=== PATIENT | male | born 1965 | race Caucasian/White ===

== ENCOUNTER → 2025-11-24 | Outpatient (CLI) | payer OTHER, SELFPAY ==
--- OUTSIDE RECORDS SUMMARY | 2025-11-24 07:17 | XMS RPT_ITS | CCD ---
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 Operator Name Role Phone Jazzy Minnie DENNY Unavailable Carmelo Foster MD Primary Care Provider Carmelo Foster MD Primary Care Provider CARMELO FOSTER Primary Care Unavailable Aliya Doherty Unavailable Nava Romero Unavailable Unavailable Primary Care Provider UnavailNoemi Upton MD Unavailable Carmelo Foster MD Unavailable Jacquleyn Parikh PA-C Unavailable [phone] Allergies Allergy Classification Reported Allergen(s) Allergy Type Date of Onset Reaction(s) Facility (3 sources) Ciprofloxacin Drug Allergy 0 nausea [facility] Work Phone: (5 sources) Ciprofloxacin; Translations: [CIPROFLOXACIN] Drug Allergy 7 GI Upset, Nausea/vomiting [facility] Medications Current Medications Medication Drug Class(es) Dates Sig (Normalized) Sig (Original) acetaminophen 325 mg / oxyCODONE hydrochloride 5 mg oral tablet (2 sources) Opioid Agonist Start: 08-05-2017 take 1-2 tablets by mouth every four hours as needed oxyCODONE-acetam inophen (PERCOCET) 5-325 mg tablet Take 1-2 tablets by mouth every 4 hours as needed. 30 tablet 08/05/2017 Active Comment on above: Take 1-2 tablets by mouth every 4 hours as needed. cephalexin 500 mg oral capsule (4 sources) Cephalosporin Antibacterial Start: 11-14-2024 End: 11-19-2024 take 1 capsule by mouth every eight hours cephalexin (Keflex) 500 mg capsule Indications: Laceration of right little finger without foreign body without damage to nail, initial encounter Take 1 capsule (500 mg) by mouth every 8 hours for 5 days. 15 capsule 11/14/2024 11/19/2024 Active Start: 07-15-2024 Cephalexin 500 mg oral capsule hydroCHLOROthiazide 12.5 mg / lisinopril 20 mg oral tablet (7 sources) Thiazide Diuretic, Angiotensin Converting Enzyme Inhibitor Start: 08-15-2020 take 2 tablets by mouth once daily lisinopril-hydrochlorothiazide 20-12.5 mg tablet 2 tablet by mouth once a day active [facility]ada Guevara [facility]. Comment on above: Take 2 tablets by mo [facility] once daily. metoprolol tartrate 100 mg oral tablet (7 sources) beta-Adrenerg ic Tonia Start: 08-15-2020 take 1 tablet by mouth twice daily metoprolol tartrate 100 mg tablet 1 tablet by mouth twice a day active Ghada Guevara [facility] [employer] [facility]. Comment on above: Take 100 mg by mouth twice daily. pantoprazole 40 mg delayed release oral tablet (5 sources) Proton Pump Inhibitor Start: 08-17-2024 take 1 tablet by mouth in the morning pantoprazole (ProtoNix) 40 mg EC tablet Take 1 tablet by mouth early in the morning.. 08/17/2024 Active Start: 08-15-2020 take 1 tablet by [facility] once daily pantoprazole 20 mg tablet,delayed release 1 tablet by mouth once a day active [facility] Start: 08-15-2020 PANTOPRAZOLE S ODIUM 40 MG TBEC 1 tablet daily PANTOPRAZOLE SODIUM [id number] Lakeisha Navarro [facility] Completed/Discontinued Medications Medication Drug Class(es) Dates Sig (Normalized) Sig (Original) NEGATED: Highlighted row has not occurred! (3 sources) Start: 08-21-2024 End: 08-21-2024 Start: 07-15-2024 End: 07-15-2024 Problems Active Problems Problem Classification Problem Date Documented Date Episodic/Chronic Esophageal disorders (2 sources) Gastroesophageal reflux disease; Translations: [Gastro-esophageal reflux disease without esophagitis] Onset: 03-04-2023 03-04-2023 Chronic Essential hypertension (2 sources) Essential hypertension; Translations: [Essential (primary) hypertension] Onset: 07-31-2017 07-31-2017 Chronic Osteoarthritis (5 sources) Unilateral primary osteoarthritis, right hip; Translations: [Unilateral primary osteoarthritis, left hip] Onset: 08-19-2020 08-19-2020 Chronic Other aftercare (1 source) Removal of sutures done; Translations: [Encounter for removal of sutures] 11-27-2024 Episodic Other connective tissue disease (3 sources) History of total hip arthroplasty; Translations: [Presence of right artificial hip joint] Onset: 10-28-2020 10-28-2020 Chronic Other connective tissue disease (2 sources) History of repair of hip joint; Translations: [Presence of left artificial hip joint] Onset: 11-04-2023 11-04-2023 Chronic Other nervous system disorders (2 sources) Lesion of ulnar nerve, right upper limb; Translations: [Lesion of ulnar nerve] Onset: 04-23-2025 05-03-2025 Chronic Other nervous system disorders (2 sources) Carpal tunnel syndrome of right wrist; Translations: [Carpal tunnel syndrome, right upper limb] Onset: 04-23-2025 05-03-2025 Chronic Other non-traumatic joint disorders (2 sources) Arthritis of right elbow; Translations: [Other specified arthritis, right elbow] Onset: 03-23-2025 03-24-2025 Chronic Other non-traumatic joint disorders (1 source) Pain in right knee; Translations: [Pain in right knee] Onset: 10-08-2024 Episodic Past or Other Problems Problem Classification Problem Date Documented Date Episodic/Chronic Abdominal hernia (2 sources) Umbilical hernia; Translations: [Umbilical hernia without obstruction or gangrene] Onset: 07-24-2017 07-24-2017 Episodic Joint disorders and dislocations; trauma-related (2 sources) Acute meniscal tear, medial; Translations: [Other tear of medial meniscus, current injury, right knee, initial encounter] Onset: 10-16-2024 10-16-2024 Episodic Open wounds of extremities (9 sources) Laceration without foreign body of right index finger without damage to nail, initial encounter; Translations: [Laceration of right little finger] Onset: 07-15-2024 Episodic Other connective tissue disease (2 sources) Lateral epicondylitis of right humerus; Translations: [Lateral epicondylitis, right elbow] Onset: 03-23-2025 03-24-2025 Episodic Other nervous system disorders (2 sources) Numbness of hand; Translations: [Anesthesia of skin] Onset: 03-23-2025 03-24-2025 Episodic Unclassified (1 source) Problem Results Test Name Value Interpretation Reference Range Facil ity Relevant diagnostic tests/la boratory data Narrativeon 07-27-2025 EMG HX of the Right Upper Extremity on 04/23/2025 at [employer] Work Phone: Fall risk assessment yes DAY[facility] [employer] Work Phone: MEDS REVIEW [employer] Work Phone: MEDS REVIEWD Medications reviewed with changes [employer] Work Phone: XRAY HX of the Right Hand and Elbow on 03/23/2025 at [employer] Work Phone: Relevant diagnostic tests/la boratory data Narrativeon 06-21-2025 EMG HX of the RUE on 04/23/2025 at [employer] Work Phone: Fall risk assessment yes DAYAN[facility] [employer] Work Phone: MEDS REVIEW Documentation of current medications (procedure) [employer] Work Phone: MEDS REVIEWD Medications reviewed without changes [employer] Work Phone: XRAY HX of the hand on 03/23/2025 at [employer] Work Phone: Suture Removalon 11-27-2024 Mayra Almaguer PA-C 11/27/2024 6:46 PM Suture Removal Date/Time: 11/27/2024 6:37 PM Performed by: Mayra Almaguer PA-C Authorized by: Mayra Almaguer PA-C Consent: Consent obtained: Verbal Consent given by: Patient Risks, benefits, and alternatives were discussed: yes Risks discussed: Bleeding and pain [place] protocol: Procedure explained and questions answered to patient or proxy's satisfaction: yes Patient identity confirmed: Verbally with patient Location: Location: Upper extremity Upper extremity location: Hand Hand location: R small finger Procedure details: Wound appearance: No signs of infection Number of sutures removed: 8 Post-procedure details: Post-removal: Band-Aid applied Procedure completion: Tolerated well, no immediate complications [facility] Work Phone: [facility] Work Phone: Laceration Repairon 11-14-20 Bud Scruggs MD 11/17/2024 10:56 PM Laceration Repair Date/Time: 11/14/2024 1:05 PM Performed by: Bud Scruggs MD Authorized by: Bud Scruggs MD Consent: Consent obtained: Verbal Risks discussed: Infection Laceration details: Location: Finger Finger location: R small finger Length (cm): 1.5 Depth (mm): 2 Exploration: Wound extent: muscle damage Wound extent: no foreign bodies/material noted and no tendon damage noted Treatment: Area cleansed with: Chlorhexidine Irrigation solution: Sterile saline Irrigation method: Syringe Skin repair: Repair method: Sutures Suture size: 4-0 Suture material: Prolene and nylon Suture technique: Simple interrupted Number of sutures: 8 Approximation: Approximation: Close Repair type: Repair type: Intermediate Post-procedure details: Dressing: Antibiotic ointment and non-adherent dressing Procedure completion: Tolerated well, no immediate complications [facility] Work Phone: [facility] Work Phone: CBC (INCLUDES DIFF/PLT)on Basophils (Bld) [#/Vol] 0.049 10*3/uL Normal 0-200 [facility] Comment on above: Performed By: #### 6 399, 99935, 7600 #### [facility] [address], [address] [place] [id number] Getterer: Adriano Payne MD Basophils/100 WBC (Bld) 1.0 % Normal [facility] Comment on above: Performed By: #### 6 399, 22896, 7600 #### [facility] [address], [address] [place] [phone] Getterer: Adriano Payne MD Eosinophils (Bld) [#/Vol] 0.108 10*3/uL Normal 15-500 [facility] Comment on above: Performed By: #### 6 399, 77651, 0 #### [facility] of [address], [address] [place] [address] Getterer: Adriano Payne MD Eosinophils/100 WBC (Bld) 2.2 % Normal [facility] Comment on above: Performed By: #### 6 399, , 0 #### [facility] of [place] [address] Getterer: Adriano Payne MD Erythrocyte distribution width (RBC) [Ratio] 13.1 % Normal 11.0-15.0 [facility] Comment on above: Performed By: #### 6 399, , 0 #### [facility] of [place] [address] Getterer: Adriano Payne MD Hematocrit (Bld) [Volume fraction] 43.2 % Normal 38.5-50.0 [facility] Comment on above: Performed By: #### 6 399, , 0 #### [facility] of [place] [address] Getterer: Adriano Payne MD Hemoglobin (Bld) [Mass/Vol] 14.3 g/dL Normal 13.2-17.1 [facility] Comment on above: Performed By: #### 6 399, 41478, 0 #### [facility] of [place] [address] Getterer: Adriano Payne MD Lymphocytes (Bld) [#/Vol] 1.352 10*3/uL Normal 850-3900 [facility] Comment on above: Performed By: #### 6 399, 50657, 7600 #### [facility] of [place] [address] Getterer: Adriano Payne MD Lymphocytes/100 WBC (Bld) 27.6 % Normal [facility] Comment on above: Performed By: #### 6 399, 39449, 7600 #### [facility] of [place] [address] Getterer: Adriano Payne MD MCH (RBC) [Entitic mass] 29.7 pg Normal 27.0-33.0 [facility] Comment on above: Performed By: #### 6 399, 28821, 7600 #### [facility] of [place] [address] Getterer: Adriano Payne MD MCHC (RBC) [Mass/Vol] 33.1 g/dL Normal 32.0-36.0 [facility] Comment on above: Result Comment: For adults, a slight decrease in the calculated MCHC value (in the range of 30 to 32 g/dL) is most likely not clinically significant; however, it should be interpreted with caution in correlation with other red cell parameters and the patient's clinical condition. Performed By: #### 6 399, 18432, 0 #### [facility] of [place] [address] Getterer: Adriano Payne MD MCV (RBC) [Entitic vol] 89.8 fL Normal 80.0-100.0 [facility] Comment on above: Performed By: #### 6 399, 43598, 0 #### [facility] of [place] [address] Getterer: Adriano Payne MD Monocytes (Bld) [#/Vol] 0.588 10*3/uL Normal 200-950 [facility] Comment on above: Performed By: #### 6 399, 50093, 7600 #### [facility] [place] [address] Getterer: Adriano Payne MD Monocytes/100 WBC (Bld) 12.0 % Normal [facility] Comment on above: Performed By: #### 6 399, 72265, 7600 #### [facility] [place] [address] Getterer: Adriano Payne MD Neutrophils (Bld) [#/Vol] 2.803 10*3/uL Normal 4599-8780 [facility] Comment on above: Performed By: #### 6 399, 41403, 7600 #### [facility] of [address], [address] [place] [address] Getterer: Adriano Payne MD Neutrophils/100 WBC (Bld) 57.2 % Normal [facility] Comment on above: Performed By: #### 6 399, 28785, 0 #### [facility] of [address], [address] [place] [address] Getterer: Adriano Payne MD Platelet mean volume (Bld) [Entitic vol] 9.2 fL Normal 7.5-12.5 [facility] Comment on above: Performed By: #### 6 399, 90303, 0 #### [facility] of [address], [address] [place] [address] Getterer: Adriano Payne MD Platelets (Bld) [#/Vol] 277 10*3/uL Normal 140-400 [facility] Comment on above: Performed By: #### 6 399, 40079, 0 #### [facility] of [address], [address] [place] [address] Getterer: Adriano Payne MD RBC (Bld) [#/Vol] 4.81 10*6/uL Normal 4.20-5.80 [facility] Comment on above: Performed By: #### 6 399, 11527, 0 #### [facility] of [address], [address] [place] [address] Getterer: Adriano Payne MD WBC (Bld) [#/Vol] 4.9 10*3/uL Normal 3.8-10.8 [facility] Comment on above: Performed By: #### 6 399, 34797, 7600 #### [facility] of [address], [address] [place] [address] Getterer: Adriano Payne MD COMPREHENSIVE METABOLIC PANE Rios 11-15-2024 Albumin [Mass/Vol] 4.1 g/dL Normal 3.6-5.1 [facility] Comment on above: Performed By: #### 6 399, 52153, 7600 #### [facility] of [address], [address] [place] [address] Getterer: Adriano Payne MD Albumin/Globulin [Mass ratio] 1.6 {ratio} Normal 1.0-2.5 [facility] Comment on above: Performed By: #### 6 399, 20006, 7600 #### [facility] of [address], [address] [place] [address] Getterer: Adriano Payne MD ALP [Catalytic activity/Vol] 62 U/L Normal 35-144 [facility] Comment on above: Performed By: #### 6 399, 42329, 0 #### [facility] of [place] [address] Getterer: Adriano Payne MD ALT [Catalytic activity/Vol] 20 U/L Normal 9-46 [facility] Comment on above: Performed By: #### 6 399, 31218, 0 #### [facility] [place] [address] Getterer: Adriano Payne MD AST [Catalytic activity/Vol] 19 U/L Normal 10-35 [facility] Comment on above: Performed By: #### 6 399, 12372, 0 #### [facility] of [place] [address] Getterer: Adriano Payne MD Bilirubin [Mass/Vol] 0.8 mg/dL Normal 0.2-1.2 [facility] Comment on above: Performed By: #### 6 399, 11544, 7600 #### [facility] of [place] [address] Getterer: Adriano Payne MD BUN/CREATININE RATIO SEE NOTE: Normal 6-22 [facility] Comment on above: Result Comment: Not Reported: BUN and Creatinine are within reference range. Performed By: #### 6 399, 13683, 0 #### [facility] of [place] [address] Getterer: Adriano Payne MD Calcium [Mass/Vol] 8.9 mg/dL Normal 8.6-10.3 [facility] Comment on above: Performed By: #### 6 399, 98647, 7600 #### [facility] [place] [address] Getterer: Adriano Payne MD Chloride [Moles/Vol] 102 mmol/L Normal 98-110 [facility] Comment on above: Performed By: #### 6 399, 48165, 7600 #### [facility] [place] [address] Getterer: Adriano Payne MD CO2 [Moles/Vol] 28 mmol/L Normal 20-32 [facility] Comment on above: Performed By: #### 6 399, 33867, 0 #### [facility] [place] [address] Getterer: Adriano Payne MD Creatinine [Mass/Vol] 0.84 mg/dL Normal 0.70-1.30 [facility] Comment on above: Performed By: #### 6 399, 02467, 0 #### [facility] [place] [address] Getterer: Adriano Payne MD GFR/1.73 sq M.predicted among non-blacks MDRD (S/P/Bld) [Vol rate/Area] 102 mL/min/{1.73_m2} Normal > OR = 60 [facility] Comment on above: Performed By: #### 6 399, 98631, 7600 #### [facility] [place] [address] Getterer: Adriano Payne MD Globulin (S) [Mass/Vol] 2.6 g/dL Normal 1.9-3.7 [facility] Comment on above: Performed By: #### 6 399, 68680, 7600 #### [facility] [address], [address] [place] [address] Getterer: Adriano Payne MD Glucose [Mass/Vol] 95 mg/dL Normal 65-99 [facility] Comment on above: Result Comment: Fasting reference interval Performed By: #### 6 399, 44330, 7600 #### [facility] [address], [address] [place] [address] Getterer: Adriano Payne MD Potassium [Moles/Vol] 4.0 mmol/L Normal 3.5-5.3 [facility] Comment on above: Performed By: #### 6 399, 38662, 7600 #### [facility] [place] [address] Getterer: Adriano Payne MD Protein [Mass/Vol] 6.7 g/dL Normal 6.1-8.1 [facility] Comment on above: Performed By: #### 6 399, 59032, 7600 #### [facility] [address], [address] [place] [address] Getterer: Adriano Payne MD Sodium [Moles/Vol] 140 mmol/L Normal 135-146 [facility] Comment on above: Performed By: #### 6 399, 40806, 7600 #### [facility] [place] [address] Getterer: Adriano Payne MD Urea nitrogen [Mass/Vol] 25 mg/dL Normal 7-25 [facility] Comment on above: Performed By: #### 6 399, 02346, 7600 #### [facility] of [place] [address] Getterer: Adriano Payne MD LIPID PANEL, [facility] 09-25 Cholesterol [Mass/Vol] 183 mg/dL Normal <200 [facility] Comment on above: Order Comment: FASTI NG:YES FASTING: YES Performed By: #### 6 399, 40056, 7600 #### [facility] of [place] [address], [address] [place] [address] Getterer: Adriano Payne MD Cholesterol in HDL [Mass/Vol] 41 mg/dL Normal > OR = 40 [facility] Comment on above: Order Comment: FASTI NG:YES FASTING: YES Performed By: #### 6 399, 55755, 7600 #### [facility] [address], [address] [place] [address] Getterer: Adriano Payne MD Cholesterol in LDL [Mass/Vol] 107 mg/dL High [facility] Comment on above: Order Comment: FASTI NG:YES FASTING: YES Result Comment: Refe rence range: <100 Desirable range <100 mg/dL for primary prevention; <70 mg/dL for patients with CHD or diabetic patients with > or = 2 CHD risk factors. LDL-C is now calculated using the Miguel Ángel calculation, which is a validated novel method providing better accuracy than the Friedewald equation in the estimation of LDL-C. Master SS et al. JANUARY. 2013;310(19): 4557-1400 (http://education.Match.AngelPrime/faq/YJO845) Performed By: #### 6 399, 61133, 7810 #### [facility] [address], [address] [place] [address] Getterer: Adriano Payne MD Cholesterol.total/Ch olesterol in HDL [Mass ratio] 4.5 {ratio} Normal <5.0 [facility] Comment on above: Order Comment: FASTI NG:YES FASTING: YES Performed By: #### 6 399, 91349, 7600 #### [facility] [address], [address] [place] [address] Getterer: Adriano Payne MD NON HDL CHOLESTEROL 142 mg/dL (calc) High <130 [facility] Comment on above: Order Comment: FASTI NG:YES FASTING: YES Result Comment: For patients with diabetes plus 1 major ASCVD risk factor, treating to a non-HDL-C goal of <100 mg/dL (LDL-C of <70 mg/dL) is considered a therapeutic option. Performed By: #### 6 399, 71008, 7600 #### [facility] [address], [address] [place] [address] Getterer: Adriano Payne MD Triglyceride [Mass/Vol] 231 mg/dL High <150 [facility] Comment on above: Order Comment: FASTI NG:YES FASTING: YES Result Comment: If a non-fasting specimen was collected, consider repeat triglyceride testing on a fasting specimen if clinically indicated. Yuliana et al. J. of Clin. Lipidol. 2015;9:129-169. Performed By: #### 6 399, 87133, 7600 #### [facility] [address], [address] [place] [address] Getterer: Adriano Payne MD PSA, TOTALon 10-09-2024 PSA, TOTAL 1.03 ng/mL Normal < OR = 4.00 [facility] Comment on above: Result Comment: The total PSA value from this assay system is standardized against the WHO standard. The test result will be approximately 20% lower when compared to the equimolar-standardized total PSA (Amos Mili). Comparison of serial PSA results should be interpreted with this fact in mind. This test was performed using the Siemens chemiluminescent method. Values obtained from different assay methods cannot be used interchangeably. PSA levels, regardless of value, should not be interpreted as absolute evidence of the presence or absence of disease. Performed By: #### 6 399, 10244, 7600 #### [facility] [address], [address] [place] [address] Getterer: Adriano Payne MD XR HIP GENERAL 3V PELV/AP/LA T LEFTon 01-31-2023 [facility] ic Clinical Summary: HMSPatient IDon 10-28-[address] [facility] Work Phone: Clinical Summary: HMSPatient IDon 10-25-2020 Physical Therapy Outpatient [facility] Work Phone: Vital Signs Date Time Vital Sign Value Performing Clinician Facility 07-27-2025 09:44-0400 Body height 183 cm Jacquelyn Parikh PA-C Work Phone: [facility] 07-27-2025 09:44-0400 Body height 182.88 cm Jacquelyn Lozoyar PA-C Work Phone: [facility] 07-27-2025 09:44-0400 Body mass index (BMI) [Ratio] 32.26 kg/m2 Jacquelyn Lozoyar PA-C Work Phone: [facility] 07-27-2025 09:44-0400 Body weight 108 kg Jacquelyn Lozoyar PA-C Work Phone: [facility] 07-27-2025 09:44-0400 Body weight 107.5 kg Jacquelyn Lozoyar PA-C Work Phone: [facility] 07-27-2025 09:44-0400 BP SITE #1 Jacquelyn Lozoyar PA-C Work Phone: [facility] 07-27-2025 09:44-0400 BP SITE #2 Jacquelyn Lozoyar PA-C Work Phone: [facility] 07-27-2025 09:44-0400 Diastolic blood pressure 81 mm[Hg] Jacquelyn Parikh PA-C Work Phone: [facility] 07-27-2025 09:44-0400 Diastolic blood pressure 83 mm[Hg] Jacquelyn Lozoyar PA-C Work Phone: [facility] 07-27-2025 09:44-0400 Heart rate 85 /min Jacquelyn Lozoyar PA-C Work Phone: [facility] 07-27-2025 09:44-0400 HGHTCHNVIS Jacquelyn Lozoyar PA-C Work Phone: [facility] 07-27-2025 09:44-0400 Systolic blood pressure 140 mm[Hg] Jacquelyn Lozoyar PA-C Work Phone: [facility] 07-27-2025 09:44-0400 Systolic blood pressure 142 mm[Hg] Jacquelyn Lozoyar PA-C Work Phone: [facility] 07-27-2025 09:44-0400 VITALSDONE Jacquelyn Lozoyar PA-C Work Phone: [facility] 06-21-2025 11:12-0400 Body height 183 cm Jacquelyn Lozoyar PA-C Work Phone: [facility] 06-21-2025 11:12-0400 Body height 182.88 cm Jacquelyn Lozoyar PA-C Work Phone: [facility] 06-21-2025 11:12-0400 Body mass index (BMI) [Ratio] 32.53 kg/m2 Jacquelyn Lozoyar PA-C Work Phone: [facility] 06-21-2025 11:12-0400 Body weight 109 kg Jacquelyn Lozoyar PA-C Work Phone: [facility] 06-21-2025 11:12-0400 Body weight 108.41 kg Jacquelyn Lozoyar PA-C Work Phone: [facility] 06-21-2025 11:12-0400 BP SITE #1 Jacquelyn Batresucar PA-C Work Phone: [facility] 06-21-2025 11:12-0400 BP SITE #2 Jacquelyn Batresucar PA-C Work Phone: [facility] 06-21-2025 11:12-0400 Diastolic blood pressure 87 mm[Hg] Jacquelyn Lozoyar PA-C Work Phone: [facility] 06-21-2025 11:12-0400 Diastolic blood pressure 94 mm[Hg] Jacquelyn Klucar PA-C Work Phone: [facility] 06-21-2025 11:12-0400 Heart rate 88 /min Jacquelyn Klucar PA-C Work Phone: [facility] 06-21-2025 11:12-0400 HGHTCHNVIS Jacquelyn Klucar PA-C Work Phone: [facility] 06-21-2025 11:12-0400 Systolic blood pressure 163 mm[Hg] Jacquelyn Klucar PA-C Work Phone: [facility] 06-21-2025 11:12-0400 Systolic blood pressure 168 mm[Hg] Jacquelyn Klucar PA-C Work Phone: [facility] 06-21-2025 11:12-0400 VITALSDONE Jacquelyn Klucar PA-C Work Phone: [facility] 11-27-2024 18:17-0500 Body temperature 96.69 [degF] Mayra Tripp PA-C Work Phone: [facility] 11-27-2024 18:17-0500 Body weight 108.86 kg Mayra Tripp PA-C Work Phone: [facility] 11-27-2024 18:17-0500 Diastolic blood pressure 82 mm[Hg] Mayra Tripp PA-C Work Phone: [facility] 11-27-2024 18:17-0500 Heart rate 56 /min Mayra Tripp PA-C Work Phone: [facility] 11-27-2024 18:17-0500 Respiratory rate 16 /min Mayra Tripp PA-C Work Phone: [facility] 11-27-2024 18:17-0500 SaO2% (BldA) [Mass fraction] 99 % Mayra Almaguer PA-C Work Phone: [facility] 11-27-2024 18:17-0500 Systolic blood pressure 146 mm[Hg] Mayra Almaguer PA-C Work Phone: [facility] 11-14-2024 11:51-0500 Body temperature 97.59 [degF] Bud Scruggs MD Work Phone: [facility] 11-14-2024 11:51-0500 Diastolic blood pressure 89 mm[Hg] Bud Scruggs MD Work Phone: [facility] 11-14-2024 11:51-0500 Heart rate 47 /min Bud Scruggs MD Work Phone: [facility] 11-14-2024 11:51-0500 Respiratory rate 16 /min Bud Scruggs MD Work Phone: [facility] 11-14-2024 11:51-0500 SaO2% (BldA) [Mass fraction] 99 % Bud Scruggs MD Work Phone: [facility] 11-14-2024 11:51-0500 Systolic blood pressure 174 mm[Hg] Bud Scruggs MD Work Phone: [facility] 07-15-2024 08:18-0400 Body temperature 97.16 [degF] Aliya Pollack [facility] 07-15-2024 08:18-0400 Body weight 108.9 kg Aliya Pollack [facility] 07-15-2024 08:18-0400 Diastolic blood pressure 99 mm[Hg] Aliya Pollack [facility] 07-15-2024 08:18-0400 Heart rate 55 /min Aliya Pollack [facility] 07-15-2024 08:18-0400 Respiratory rate 16 /min Aliya Doherty [facility] 07-15-2024 08:18-0400 SaO2% (BldA) [Mass fraction] 98 % Aliya Doherty [facility] 07-15-2024 08:18-0400 Systolic blood pressure 185 mm[Hg] Aliya Doherty [facility] NEGATED: Highlighted [id number] 15:32-0500 BMI (Body Mass Index) 31.49 kg/m2 Aline Orellana [facility] Work Phone: NEGATED: Highlighted [id number] 15:32-0500 Body weight 102.06 kg Aline Orellana [facility] Work Phone: NEGATED: Highlighted [id number] 15:32-0500 Body weight 102 kg Aline Orellana [facility] Work Phone: NEGATED: Highlighted [id number] 15:32-0500 Heart rate 2+ Aline Orellana [facility] Work Phone: NEGATED: Highlighted [id number] 15:32-0500 Height 180.34 cm Aline Orellana [facility] Work Phone: NEGATED: Highlighted [id number] 15:32-0500 Height 180 cm Aline Orellana [facility] Work Phone: Encounters Encounter Date Encounter Type Care Provider Facility Start: 07-27-2025 In-person encounter Jacquelyn yeboah PA-C Work Phone: [facility] Work Phone: Start: 07-27-2025 Visit out of hours Jacquelyn You car PA-C Work Phone: [place] [employer] Work Phone: Start: 06-21-2025 In-person encounter Jacquelyn yeboah PA-C Work Phone: [facility] Work Phone: Start: 06-21-2025 Visit out of hours Jacquelyn You car PA-C Work Phone: [facility] Work Phone: Start: 11-27-2024 End: 11-27-2024 Postop follow up visit related to original px Mayra Almaguer PA-C Work Phone: [facility] Comment on above: Visit for suture rem oval (Primary Dx) Start: 11-14-2024 End: 11-14-2024 Office outpatient new 45 minutes Bud Scruggs MD Work Phone: [facility] Comment on above: Laceration of right little finger without foreign body without damage to nail, initial encounter (Primary Dx) Start: 10-08-2024 ambulatory CARMELO FOSTER Faci lity:[facility] Start: 10-08-2024 End: 10-08-2024 Subsequent hospital visit by physician Xr [facility] Comment on above: Pain in right knee [ M25.561] Start: 07-15-2024 Aliya cagle [facility] Start: 01-31-2023 End: 01-31-2023 Subsequent hospital visit by physician Xr [facility] Comment on above: Pain in left hip [M2 5.552] Start: 10-28-2020 End: 10-28-2020 Patient encounter procedure Minnie Purcell [employer] Work Phone: [facility] Work Phone: Procedures Date Procedure Procedure Detail Performing Clinician Start: 07-27-2025 Blood pressure outsi de of normal parameters - follow-up documented Jacquelyn Robbins Klucar PA-C Work Phone: Start: 07-27-2025 BMI documented as ab ove normal parameters - follow-up documented Jacquelyn Robbins Klucar PA-C Work Phone: Start: 07-27-2025 Current tobacco non- user cad cap copd pv dm Jacquelyn Robbins Klucar PA-C Work Phone: Start: 07-27-2025 Documentation of cur rent medications Jacquelyn Robbins Klucar PA-C Work Phone: Start: 07-27-2025 Pain assessment documented as positive - follow-up documented Jacquelyn Robbins Klucar PA-C Work Phone: Start: 07-27-2025 Community/work reintegration traing ea 15 min Jacquelyn A Klucar PA-C Work Phone: Start: 06-21-2025 Blood pressure outsi de of normal parameters - follow-up documented Jacquelyn Robbins Klucar PA-C Work Phone: Start: 06-21-2025 BMI documented as ab ove normal parameters - follow-up documented Jacquelyn Robbins Klucar PA-C Work Phone: Start: 06-21-2025 Current tobacco non- user cad cap copd pv dm Jacquelyn Robbins Klucar PA-C Work Phone: Start: 06-21-2025 Documentation of cur rent medications Jacquelyn A Klucar PA-C Work Phone: Start: 06-21-2025 Pain assessment documented as negative - follow-up not required Jacquelyn Robbins Klucar PA-C Work Phone: Start: 06-21-2025 GEL JOVAN Jacquelyn Robbins Kl ucar PA-C Work Phone: Start: 06-21-2025 GELFLEX Jacquelyn Robbins Kl ucar PA-C Work Phone: Start: 06-21-2025 Occupational therapy Moon Parikh PA-C Work Phone: Start: 12-11-2024 History of operative procedure on knee Status post arthroscopic surgery of right knee Jacquelyn SHARMAC Work Phone: Start: 11-27-2024 SUTURE REMOVAL Mayra crowley PA-C Work Phone: Start: 11-14-2024 Repair intermediate n/h/f/xtrnl gent 2.5cm/< Bud Scruggs MD Work Phone: Start: 07-15-2024 Smpl repair scalp/neck/ax/genit/trun k 2.6-7.5cm Aliya Doherty Start: 01-31-2023 Radex hip unilateral with pelvis 2-3 views Gian SHARMAC Work Phone: Start: 10-28-2020 End: 10-28-2020 Blood pressure screening not performed - reason not given Minnie Robbins Wattley [employer] Work Phone: Start: 10-28-2020 End: 10-28-2020 BMI documented as above normal parameters - follow-up documented Minnie Robbins Wattley [employer] Work Phone: Start: 10-28-2020 End: 10-28-2020 Documentation of current medications Minnie Bustostley [employer] Work Phone: Start: 10-28-2020 End: 10-28-2020 Osteoarthritis assess Minnie A Wattley [employer] Work Phone: Start: 10-28-2020 End: 10-28-2020 Pain assessment documented as positive - follow-up documented Minnie Bustostley [employer] Work Phone: Start: 10-28-2020 End: 10-28-2020 Tobacco non-user Minnie Diopy [employer] Work Phone: Start: 11-01-2018 Follow-up visit Start: 06-02-2016 Lipid 1996 panel - S ramo or Plasma Xr Hosp NEGATED: Highlighted rowStart: 10-28-2020 End: 10-28-2020 Documentation of current medications Aline Orellana LPN Plan of Treatment Date Care Activity Detail Author Start: 11-14-2034 DTaP/Tdap/Td Vaccines (3 - Td or Tdap) DTaP/Tdap/Td Vaccines (3 - Td or Tdap) [facility] Start: 06-17-2027 Urine microalbumin profile DTaP,Tdap,Td Vaccine (2 - Td or Tdap) [facility] Start: 07-27-2025 End: 07-27-2025 [employer] Work Phone: Start: 06-21-2025 End: 06-21-2025 [employer] Work Phone: Start: 07-26-2024 COVID-19 Vaccine ( season) COVID-19 Vaccine () [facility] Start: 07-26-2024 Covid-19 Vaccine ( season) Covid-19 Vaccine ( season) [facility] Start: 07-26-2024 Influenza vaccination Influenza Vaccine (#1) [facility] Start: 11-25-2022 DEPRESSION ASSESSMENT DEPRESSION ASSESSMENT [facility] Start: 2022 PROSTATE CANCER SCREENING DISCUSSION PROSTATE CANCER SCREENING DISCUSSION [facility] Start: 2022 Prostate specific antigen measurement Prostate Cancer Screening Discussion [facility] Start: 08-11-2022 Screening for malignant neoplasm of colon [facility] Start: 01-26-2022 COVID-19 VACCINE (4 - Booster for Pfizer series) COVID-19 VACCINE (4 - Booster for Pfizer series) [facility] Start: 06-02-2021 Lipid panel Lipid Screening [facility] Start: 06-02-2021 LIPID SCREEN LIPID SCREEN [facility] Start: 11-10-2020 End: 11-10-2020 Appointment Appointment [facility] Work Phone: Start: 11-08-2020 End: 11-08-2020 Appointment Appointment [facility] Work Phone: Start: 11-03-2020 End: 11-03-2020 Appointment Appointment [facility] Work Phone: Start: 11-01-2020 End: 11-01-2020 Appointment Appointment [facility] Work Phone: Start: 10-28-2020 End: 10-28-2020 Appointment Appointment [facility] Work Phone: Start: 10-28-2020 End: 10-28-2020 Radex hip unilateral with pelvis 2-3 views XR PELVIS W HIP 1 VIEW-RT [facility] Work Phone: Start: 06-02-2019 DIABETES SCREEN DIABETES SCREEN [facility] Start: 06-02-2019 Diabetes Screening Diabetes Screening [facility] Start: 2017 SHINGRIX VACCINE (1 of 2) SHINGRIX VACCINE (1 of 2) [facility] Start: 2012 COLOGUARD (FIT-DNA) COLOGUARD (FIT-DNA) [facility] Start: 2012 Colonoscopy COLONOSCOPY [facility] Start: 2012 COLORECTAL CANCER SCREENING COLORECTAL CANCER SCREENING [facility] Start: [address] COLONOGRAPHY [facility] Start: 2012 FECAL OCCULT BLOOD FECAL OCCULT BLOOD [facility] Start: 2012 Screening for malignant neoplasm of colon [facility] Start: 2012 SIGMOIDOSCOPY SIGMOIDOSCOPY [facility] Start: 1986 Hepatitis B Vaccine (1 of 3 - 19+ 3-dose series) Hepatitis B Vaccine (1 of 3 - 19+ 3-dose series) [facility] Start: 1986 Hepatitis B Vaccines (1 of 3 - 19+ 3-dose series) Hepatitis B Vaccines (1 of 3 - 19+ 3-dose series) [facility] Start: 1986 Pneumococcal vaccination Pneumococcal Vaccine (1 of 2 - PCV) [facility] Start: 1986 Urine microalbumin profile DTAP,TDAP,TD (1 - Tdap) [facility] Start: 1985 ANNUAL PCP TEAM CHRONIC DISEASE VISIT ANNUAL PCP TEAM CHRONIC DISEASE VISIT [facility] Start: 1985 Anxiety Screening Anxiety Screening [facility] Start: 1985 BP CONTROLLED (<130/80) BP CONTROLLED (<130/80) [facility] Start: 1985 Depression Screening Depression Screening [facility] Start: 1985 HEPATITIS C SCREENING HEPATITIS C SCREENING [facility] Start: 1985 Hepatitis C screening Hepatitis C Screening [facility] Start: 1985 HIV SCREENING HIV SCREENING [facility] Start: 1985 HIV screening HIV Screening [facility] Start: 1968 MMR Vaccines (1 of 1 - Standard series) MMR Vaccines (1 of 1 - Standard series) [facility] Start: 1967 HEPATITIS B (1 of 3 - 3-dose series) HEPATITIS B (1 of 3 - 3-dose series) [facility] Start: 1967 HIV screening HIV Screening [facility] Start: 1967 Lipid panel Lipid Panel [facility] Start: 1967 Screening for malignant neoplasm of colon [facility] Start: 1967 Yearly Adult Physical Yearly Adult Physical [facility] Patient Education \cps-[id number]\CPS_ PtEducatio n\CDC_FALL_PREVENTION.pd f [facility] Work Phone: Immunizations Immunization Date Immunization Notes Care Provider Bayron garzon 11-14-2024 tetanus toxoid, redu joaquina diphtheria toxoid, and acellular pertussis vaccine, adsorbed Bud Scruggs MD Work Phone: [facility] Work Phone: 10-08-2024 Influenza, MDCK, trivalent, preservative Bud Scruggs MD Work Phone: [facility] Work Phone: 10-08-2024 influenza virus vaccine, unspecified formulation Bud Scruggs MD Work Phone: [facility] Work Phone: 11-04-2023 influenza, injectabl e, quadrivalent, preservative free Bud Scruggs MD Work Phone: [facility] Work Phone: 11-04-2023 influenza virus vaccine, unspecified formulation Xr [facility] 01-31-2023 zoster vaccine recombinant Bud Scruggs MD Work Phone: [facility] Work Phone: 11-13-2022 zoster vaccine recombinant Bud Scruggs MD Work Phone: [facility] Work Phone: 10-30-2022 Influenza, injectabl e, Madin Dee Canine Kidney, quadrivalent with preservative Bud Scruggs MD Work Phone: [facility] Work Phone: 10-24-2021 Influenza, injectabl e, Madin [place] Canine Kidney, quadrivalent with preservative Bud Scruggs MD Work Phone: [facility] Work Phone: 03-23-2021 COVID-19 original vaccine, age 12+ yr, monovalent (PFIZER-BIONTECH - PURPLE TOP) Xr [facility] 03-02-2021 COVID-19 original vaccine, age 12+ yr, monovalent (PFIZER-BIONTECH - PURPLE TOP) Xr [facility] 08-25-2020 Influenza, injectabl e, Madin [place] Canine Kidney, quadrivalent with preservative Bud Scruggs MD Work Phone: [facility] Work Phone: 06-17-2017 tetanus toxoid, redu joaquina diphtheria toxoid, and acellular pertussis vaccine, adsorbed Bdu Scruggs MD Work Phone: [facility] Work Phone: Payers Date Payer Category Payer Managed Care (Private) [facility] [id number] 2023 Private Health Insurance [facility] [employer] [id number] 2023-Present [phone] [address] [place] [address] HMO 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) [facility] Start: 1965 Sex Assigned At Not on file [facility] Start: 05-23-2018 End: 11-27-2024 History of Social function [facility] Start: 05-23-2018 End: 07-27-2025 Tobacco use panel [facility] National Score (1-100), lower number is lower risk Not on file [facility] Start: 11-14-2024 [facility] Occasional tobacco smoker [facility] Work Phone: History of tobacco use Cigar Smoker [facility] Work Phone: Start: 11-14-2024 End: 11-27-2024 Alcoholic beverage intake Current drinker of alcohol (finding) [facility] Work Phone: Functional Status Date Assessment Result Facility 07-27-2025 Functional Status no [facility] Work Phone: 07-27-2025 dependent [facility] Work Phone: 06-21-2025 Functional Status no [facility] [employer] [facility] Work Phone: 06-21-2025 dependent [facility] Work Phone: History of Present illness Narrative 11-27-2024 Mayra Almaguer PA-C - 11/27/2024 6:15 PM EST Note Date & Type Note Facility 11-27-2024 History of Present illness Narrative Associated Order(s): Suture Removal Subjective Patient ID: Miguel Eason is a 59 y.o. male. They present today with a chief complaint of Suture / Staple Removal. History of Present Illness Pt has no concerns reported on scene. Reports no concerns. Suture placed on 11/14 at same location. Was rechecked 3days ago and was informed to return later due to concerns for healing. Suture / Staple Removal Past Medical History Allergies as of 11/27/2024 - Reviewed 11/27/2024 Allergen Reaction Noted Ciprofloxacin Nausea/vomiting 11/14/2024 (Not in a hospital admission) History reviewed. No pertinent past medical history. History reviewed. No pertinent surgical history. reports that he has been smoking cigars. He has never used smokeless tobacco. He reports current alcohol use. He reports that he does not use drugs. Review of Systems Review of Systems Constitutional: Negative for chills, fatigue and fever. HENT: Negative for ear discharge, ear pain, rhinorrhea, sinus pain, sneezing and sore throat. Eyes: Negative for pain, discharge, redness and itching. Respiratory: Negative for cough, chest tightness and shortness of breath. Cardiovascular: Negative for chest pain. Gastrointestinal: Negative for abdominal pain, diarrhea, nausea and vomiting. Musculoskeletal: Negative for arthralgias and joint swelling. Skin: Positive for wound. Negative for rash. Objective Vitals: 11/27/24 1817 BP: 146/82 Pulse: 56 Resp: 16 Temp: 35.9 C (96.7 F) SpO2: 99% Weight: 109 kg (240 lb) No LMP for male patient. Physical Exam Constitutional: Appearance: Normal appearance. HENT: Head: Normocephalic and atraumatic. Right Ear: Tympanic membrane, ear canal and external ear normal. Left Ear: Tympanic membrane, ear canal and external ear normal. Cardiovascular: Rate and Rhythm: Normal rate and regular rhythm. Heart sounds: No murmur heard. Pulmonary: Effort: Pulmonary effort is normal. No respiratory distress. Breath sounds: No stridor. No wheezing, rhonchi or rales. Skin: General: Skin is warm and dry. Findings: No rash. Comments: Linear laceration on palmar side of right 5th finger, sutures in place, no skin erythema/warmth/swelling/draina ge Neurological: Mental Status: He is alert and oriented to person, place, and time. Psychiatric: Mood and Affect: Mood normal. Suture Removal Date/Time: 11/27/2024 6:37 PM Performed by: Mayra Almaguer PA-C Authorized by: Mayra Almaguer PA-C Consent: Consent obtained: Verbal Consent given by: Patient Risks, benefits, and alternatives were discussed: yes Risks discussed: Bleeding and pain [place] protocol: Procedure explained and questions answered to patient or proxy's satisfaction: yes Patient identity confirmed: Verbally with patient Location: Location: Upper extremity Upper extremity location: Hand Hand location: R small finger Procedure details: Wound appearance: No signs of infection Number of sutures removed: 8 Post-procedure details: Post-removal: Band-Aid applied Procedure completion: Tolerated well, no immediate complications Point of Care Test & Imaging Results from this visit No results found for this visit on 11/27/24. No results found. Diagnostic study results (if any) were reviewed by Mayra Almaguer PA-C. Assessment/Plan Allergies, medications, history, and pertinent labs/EKGs/Imaging reviewed by Mayra Almaguer PA-C. Medical Decision Making Suture removal, no complications, wound heals well, 8 sutures removed Orders and Diagnoses There are no diagnoses linked to this encounter. Medical Admin Record Patient disposition: Home Electronically signed by Mayra Almaguer PA-C 6:45 PM documented in this encounter [facility] Work Phone: Instructions 11-27-2024 Patient Instructions Note Date & Type Note Facility 11-27-2024 Instructions Mayra Almaguer PA-C - 11/27/2024 6:15 PM EST Care wound as instructed Seek medical attention for any s/s indicating infection documented in this encounter [facility] Work Phone: History of Present illness Narrative 11-14-2024 Bud Scruggs MD - 11/14/2024 10:35 AM EST Note Date & Type Note Facility 11-14-2024 History of Present illness Narrative Associated Order(s): Laceration Repair Post-Procedure Diagnose(s): Laceration of right little finger without foreign body without damage to nail, initial encounter Subjective Patient ID: Miguel Eason is a 59 y.o. male. They present today with a chief complaint of Laceration (Right pinky laceration from knife a couple hours ago). History of Present Illness Patient reports he cut his right anterior pinky ~1-2 hours ago Washed with soap and water Denies use of blood thinners Denies allergy to lidocaine Believes he got his tetanus within the past few years Past Medical History Allergies as of 11/14/2024 - Reviewed 11/14/2024 Allergen Reaction Noted Ciprofloxacin Nausea/vomiting 11/14/2024 (Not in a hospital admission) No past medical history on file. No past surgical history on file. reports that he has been smoking cigars. He has never used smokeless tobacco. He reports current alcohol use. He reports that he does not use drugs. Objective Vitals: 11/14/24 1151 BP: 174/89 Pulse: (!) 47 Resp: 16 Temp: 36.4 C (97.6 F) SpO2: 99% No LMP for male patient. Physical Exam Constitutional: General: He is not in acute distress. Appearance: Normal appearance. He is not toxic-appearing or diaphoretic. HENT: Nose: No rhinorrhea. Eyes: General: No scleral icterus. Right eye: No discharge. Left eye: No discharge. Extraocular Movements: Extraocular movements intact. Pulmonary: Effort: Pulmonary effort is normal. Musculoskeletal: Cervical back: Normal range of motion. Skin: Findings: Laceration present. Comments: RIGHT PINKY (anterior) ~1.5cm horizontal laceration No apparent FB No evidence of streaking erythema No evidence of purulence No evidence of fluctuance Neurological: Mental Status: He is alert. Psychiatric: Mood and Affect: Mood normal. Behavior: Behavior normal. Thought Content: Thought content normal. Comments: Pleasant Laceration Repair Date/Time: 11/14/2024 1:05 PM Performed by: Bud Scruggs MD Authorized by: Bud Scruggs MD Consent: Consent obtained: Verbal Risks discussed: Infection Laceration details: Location: Finger Finger location: R small finger Length (cm): 1.5 Depth (mm): 2 Exploration: Wound extent: muscle damage Wound extent: no foreign bodies/material noted and no tendon damage noted Treatment: Area cleansed with: Chlorhexidine Irrigation solution: Sterile saline Irrigation method: Syringe Skin repair: Repair method: Sutures Suture size: 4-0 Suture material: Prolene and nylon Suture technique: Simple interrupted Number of sutures: 8 Approximation: Approximation: Close Repair type: Repair type: Intermediate Post-procedure details: Dressing: Antibiotic ointment and non-adherent dressing Procedure completion: Tolerated well, no immediate complications Point of Care Test & Imaging Results from this visit: No results found for this or any previous visit. Diagnostic study results (if any) were reviewed by Bud Scruggs MD. Assessment/Plan Allergies, medications, history, and pertinent labs/EKGs/Imaging reviewed by Bud Scruggs MD. Orders and Diagnoses Diagnoses and all orders for this visit: Laceration of right little finger without foreign body without damage to nail, initial encounter - cephalexin (Keflex) 500 mg capsule; Take 1 capsule (500 mg) by mouth every 8 hours for 5 days. - Laceration Repair - Tdap vaccine, age 7 years and older (BOOSTRIX) Patient disposition: Home Medical Admin Record Follow Up Instructions No follow-ups on file. Electronically signed by Bud Scruggs MD 10:52 PM ' documented in this encounter [facility] Work Phone: Note 01-31-2023 [facility] Netta Aly RT(R) - 01/31/2023 4:15 PM EST Note Date & Type Note Facility 01-31-2023 Miscellaneous Notes Formattin g of this note might be different from the original. Radiology Service Progress Note PATIENT NAME: Miguel Eason DATE OF SERVICE: January 31, 2023 TIME: 4:38 PM PATIENT IDENTITY VERIFICATION COMPLETED USING TWO (2) IDENTIFIERS: Name and Date of confirmed by patient verbally. FALL SCREENING: Has the patient had 2 falls in the last year or 1 fall with injury or currently using an Ambulatory Assistive Device (Walker, Cane, Wheelchair, Crutches, etc.)? No PATIENT GENDER DATA: Male PATIENT RELEVANT IMPLANT DATA REVIEWED: Not Applicable RADIOLOGY DEPARTMENT: General X-ray: Exam(s) Completed: Pelvis X-Ray: Pelvis with Hip Left PERIPHERAL IV DATA: Not applicable SIGNED BY: RT Brain(Zack) January 31, 2023 4:38 PM documented in this encounter [facility] Evaluation note Note Date & Type Note Facility Evaluation note Diagnosis Laceration of right little finger without foreign body without damage to nail, initial encounter- Primary documented in this encounter [facility] Work Phone: Evaluation note Note Date & Type Note Facility Evaluation note Diagnosis Visit for suture removal- Primary documented in this encounter [facility] Work Phone: Instructions Note Date & Type Note Facility Instructions PATIENT INSTRUCTIONS:HOME CA RE INSTRUCTIONS: --- Only take medicine as told by your doctor.--- Clean the wound daily with mild soap and water.--- Change any bandages (dressings) as told by your doctor.--- Put medicated cream and a bandage on the wound as told by your doctor.--- Change the bandage if it gets wet, dirty, or starts to smell.---Take showers. Do not take baths, swim, or do anything that puts your wound under water.--- Rest and raise (elevate) the wound until the pain and puffiness (swelling) are better.--- Keep all doctor visits as told.SEEK FURTHER MEDICAL ATTENTION IF:--- Yellowish-white fluid (pus) comes from the wound.--- Medicine does not lessen your pain.---There is a red streak going away from the wound.--- You have a fever. [facility] Instructions Note Date & Type Note Facility Instructions No instruction information i s available. [facility] Instructions Attachments Note Date & Type Note Facility Instructions The following attachments cannot be sent through Care Everywhere.Laceration Repair (Thai)documented in this encounter [facility] Work Phone: Summary Purpose Family History Family Member Condition Father Full Sister High blood pressure Full Brother Cancer Mother High blood pressure Mother Heart disease Mother Family Member Condition Father Full Sister High blood pressure Full Brother Cancer Mother High blood pressure Mother Heart disease Mother Advance Directives No Advanced Directives Records FoundThere may be information available, but it has not been provided by the sender.No Advanced Directives Records FoundNo Advanced Directives Records Found No Information Available No Information Available Chief Complaint Chief Complaint Description Start Date right hip post Right total h ip arthroplasty on 10/08/2020 Preliminary chief co mplaint data, not yet signed by the author as of Instructions Instruction Description Start Date CompletedPatient advised to follow-up with Primary Care Physician for BMI management. Assessments There may be information available, but it has not been provided by the sender. Review of System There may be information available, but it has not been provided by the sender. History of Present Illness There may be information available, but it has not been provided by the sender. Additional Source Comments (unrecognized sect ion and content) No Status Records FoundNo Status Records FoundNo Status Records Found INFORMATION SOURCE (unrecogn ized section and content) DATE CREATED AUTHOR 11/02/2018 [employer] DATE CREATED AUTHOR AUTHOR'S ORGANIZ ATION 10/11/2024 [facility] DATE CREATED AUTHOR AUTHOR'S ORGANIZ ATION 10/11/2024 [facility] Reason for Visit (unrecogniz ed section and content) right hand post RIGHT ENDOSC OPIC CARPAL TUNNEL RELEASE ENDOSCOPIC CUBITAL TUNNEL RELEASE on 06/08/2025, Postop - subsequent visit Reason For Visit Description Postop - 1st visit Preliminary reason f or visit data, not yet signed by the author as of right hip post Right total h ip arthroplasty on 10/08/2020 Reason Comments Radiology XR right knee pain and swelling Reason Comments Laceration Right pinky lacerati on from knife a couple hours ago Reason Comments Suture / Staple Removal Source Comments (unrecognize d section and content) In the event this informatio n is protected by the Federal Confidentiality of Alcohol and Drug Abuse Patient Records regulations: The Federal rules restrict any use of the information to criminally investigate or prosecute any alcohol or drug abuse patient.[facility] the event this information is protected by the Federal Confidentiality of Alcohol and Drug Abuse Patient Records regulations: The Federal rules restrict any use of the information to criminally investigate or prosecute any alcohol or drug abuse patient.[facility] Care Teams (unrecognized sec tion and content) 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 This clinical summary was aggregated from multiple sources. Caution should be exercised in using it in the provision of clinical care. This summary normalizes information from multiple sources, and as a consequence, information in this document may materially change the coding, format and clinical context of patient data. In addition, data may be omitted in some cases. CLINICAL DECISIONS SHOULD BE BASED ON THE PRIMARY CLINICAL RECORDS. [facility]. provides no warranty or guarantee of the accuracy or completeness of information in this document.
== END | disposition home or self-care (01) ==
PROVIDERS: PCP Family Medicine; Referring Provider Physician Assistant; Visit Provider Physician Assistant
DX: I10 Essential (primary) hypertension (principal); E78.2 Mixed hyperlipidemia
CPT/HCPCS: 75571; 76380